=== PATIENT | female | born 1990 ===

== ENCOUNTER 2017-08-09 20:36 | Emergency (ER) | payer SELFPAY ==
[2017-08-09 20:43] VITALS: RESP 18
--- NOTE | 2017-08-09 22:04 | ED PDOC ---
HPI: Female Pain Time Seen by Provider: 08/09/17 20:48 Chief Complaint (Nursing): Female Genitourinary Chief Complaint (Provider): Abdominal Pain History Per: Patient History/Exam Limitations: no limitations Onset/Duration Of Symptoms: Days (x1) Current Symptoms Are (Timing): Still Present Quality Of Discomfort: Burning Associated Symptoms: Nausea. denies: Vomiting Additional Complaint(s): Winnie Garcia is a 27 year old female who presents to the ED complaining of vaginal bleeding for 1 day and abdominal pain for 1 week. Patient is and is EGA 7 weeks. Patient reports she is currently visiting from [facility]. She states she has lower abdominal pain for 1 week and today, pain became significantly worse. Pain is a burning sensation and has had nausea but no vomiting. PCP: none provided Past Medical History Reviewed: Historical Data, Nursing Documentation, Vital Signs Vital Signs: Last Vital Signs Temp 98.3 F 08/09/17 20:40 Pulse 72 08/09/17 20:40 Resp 18 08/09/17 20:40 BP 149/81 08/09/17 20:40 Pulse Ox 100 08/09/17 20:40 - Medical History PMH: Hypothyroidism - Surgical History Surgical History: Back Surgery (spinal surgery for scoliosis) - Family History Family History: States: Unknown Family Hx - Social History Current smoker - smoking cessation education provided: No Alcohol: None Drugs: Denies - Allergies Allergies/Adverse Reactions: Allergies Allergy/AdvReac Type Severity Reaction Status Date / Time No Known Allergies Allergy Verified 08/09/17 21:25 Review of Systems ROS Statement: Except As Marked, All Systems Reviewed And Found Negative Gastrointestinal: Positive for: Nausea, Abdominal Pain. Negative for: Vomiting Genitourinary Female: Positive for: Vaginal Bleeding Physical Exam - Reviewed Nursing Documentation Reviewed: Yes Vital Signs Reviewed: Yes - Physical Exam Appears: Positive for: Non-toxic, No Acute Distress Head Exam: Positive for: ATRAUMATIC, NORMOCEPHALIC Skin: Positive for: Normal Color, Warm, Dry Eye Exam: Positive for: Normal appearance Neck: Positive for: Normal, Painless ROM Cardiovascular/Chest: Positive for: Regular Rate, Rhythm. Negative for: Murmur Respiratory: Positive for: Normal Breath Sounds. Negative for: Wheezing, Respiratory Distress Gastrointestinal/Abdominal: Positive for: Tenderness (suprapubic) Back: Positive for: Normal Inspection. Negative for: L CVA Tenderness, R CVA Tenderness Extremity: Positive for: Normal ROM Neurologic/Psych: Positive for: Alert, Oriented. Negative for: Motor/Sensory Deficits - Laboratory Results Result Diagrams: 08/09/17 22:01 08/09/17 22:45 - ECG O2 Sat by Pulse Oximetry: 100 (RA) Pulse Ox Interpretation: Normal Medical Decision Making Medical Decision Making: Initial Impression: 27 year old female with abdominal pain Initial Plan: ABO/RH type Type and screen Beta HCG Urine ED urine dipstick CBC Tylenol 650mg PO US transvaginal Scribe Attestation: Documented by Aman Rangel acting as a scribe for Carlos Pastor MD. Provider Scribe Attestation: All medical record entries made by the Scribe were at my direction and personally dictated by me. I have reviewed the chart and agree that the record accurately reflects my personal performance of the history, physical exam, medical decision making, and the department course for this patient. I have also personally directed, reviewed, and agree with the discharge instructions and disposition. Time: 0143 TRANSVAGINAL US RESULTS FINDINGS: Gestation: No intrauterine is identified at this time. Uterus/cervix: The uterus measures 6.6 x 5.0 x 3.6 cm. Endometrial thickness measures approximately 9 mm and contains a complex nonspecific focus. No myometrial mass. Ovaries: RIGHT ovary measures 3.0 x 2.3 x 1.6 cm. LEFT ovary measures 2.1 x 3.1 x 2.1 cm it contains a 1.6 x 2.3 x 1.6 cm complex cyst. Free fluid: No free fluid. IMPRESSION: No intrauterine is identified at this time. Complex endometrium. Followup as clinically warranted. Thank you for allowing us to participate in the care of your patient. Dictated and Authenticated by: Jesus Licona MD 08/10/2017 1:43 AM Eastern Time ([place] & [place]) Time: 015 -- Labs reviewed show no clinically sig abnormalities; Based on BHCG level and U/S patient likely has much earlier stage of (2-3 weeks) vs threat miscarriage which was explained to her at length. Patient reports symptoms improved after Tylenol. Provider explained return precaution and need for pelvic rest. Patient intends to return to [place] within the next two weeks and instructed to return for heavy bleeding or worsening pain. Patient is stable for discharge with the diagnosis of threatened miscarriage and ovarian cysts. Patient to be referred to the [facility]. Scribe Attestation: Documented by Rain Shields, acting as a scribe for Dr. Carlos Pastor MD. Provider Scribe Attestation: All medical record entries made by the Scribe were at my direction and personally dictated by me. I have reviewed the chart and agree that the record accurately reflects my personal performance of the history, physical exam, medical decision making, and the department course for this patient. I have also personally directed, reviewed, and agree with the discharge instructions and disposition. Disposition - Clinical Impression Clinical Impression: Ovarian cyst, Threatened miscarriage - Disposition Referrals: [facility] [Outside] Disposition Time: 23:30 Condition: STABLE Instructions: Ovarian Cysts, Bleeding With Forms: [facility] (Djiboutian) Print Language: ARMENIAN
[2017-08-09 22:19] LABS: BASO # 0.1 K/uL (0.0-0.2); BASO % 0.5 % (0.0-2.0); EOS # 0.2 K/uL (0.0-0.7); EOS % 2.1 % (0.0-4.0); HEMOGLOBIN 12.8 g/dL (12.0-16.0); LYMPH # 3.5 K/uL (1.0-4.3); LYMPH % 30.2 % (20.0-40.0); MEAN CELL VOLUME 91.4 fl (81.0-99.0); MEAN CORPUSCULAR HEMOGLOBIN 30.8 pg (27.0-31.0); MEAN CORPUSCULAR HGB CONC 33.7 g/dL (33.0-37.0); MEAN PLATELET VOLUME 8.8 fl (7.2-11.7); MONO # 0.6 K/uL (0.0-0.8); MONO % 4.8 % (0.0-10.0); NEUT # 7.3 K/uL (1.8-7.0); NEUT % 62.4 % (50.0-75.0); RBC 4.16 Mil/uL (3.80-5.20); WHITE BLOOD COUNT 11.7 K/uL (4.8-10.8)
[2017-08-09 23:41] LABS: ALB/GLOB RATIO 0.9 (1.0-2.1); ALBUMIN 3.6 g/dL (3.5-5.0); ALT/SGPT 27 U/L (9-52); AST/SGOT 65 U/L (14-36); BLOOD UREA NITROGEN 12 mg/dl (7-17); CALCIUM 9.1 mg/dL (8.4-10.2); GFR AFRICAN-AMERICAN > 60; GFR NON-AFRICAN AMERICAN > 60
[2017-08-10 02:10] VITALS: BP 115/72; PULSE 77; TEMP 98.5
[2017-08-10 06:21] VITALS: O2SAT 100
--- NOTE | 2017-08-10 15:28 | US ---
HISTORY: preg vag bld ; patient last which appears reported 06/18/2017 in a patient that has irregular cycles reportedly. Based on LMP, gestation of 7 weeks 3 days is suggested. COMPARISON: None available. TECHNIQUE: Transvaginal pelvic ultrasound was performed with longitudinal and transverse images submitted for interpretation. FINDINGS: UTERUS: Measures 6.6 x 5.0 x 3.6 cm. Uterus appears retroverted, normal in size and appearance. No fibroid or other mass lesion seen. ENDOMETRIUM: Measures 8.5 mm in diameter. No definitive gestational sac identified within the endometrial cavity at this time. CERVIX: No cervical abnormality identified. Cervical length measures 3.3 cm RIGHT OVARY: Measures 3.0 x 2.3 x 1.6 cm. No solid mass. Normal flow. A few follicles are scattered. LEFT OVARY: Measures 2.1 x 3.1 x 2.1 cm. No solid mass. Normal flow. No definitive suspicious finding appreciated. A few tiny follicles are identified. FREE FLUID: No significant free fluid noted. OTHER FINDINGS: None. IMPRESSION: No IUP identified at this time. An early nonvisualized intrauterine gestation is possible but would be discrepant from the patient's LMP derived dates of 7 weeks 3 days. Consider potential failure of gestation as well. Ectopic is not identified but is not been excluded completely. Continued follow-up recommended by serial beta HCG analysis as well as transvaginal pelvic ultrasonography. Concordant preliminary report from [facility], 08/10/2017.
== END 2017-08-10 02:15 | disposition home or self-care (01) ==
LOC: H.ER 20:36
DX: O20.9 Hemorrhage in early pregnancy, unspecified (principal); O20.0 Threatened abortion; N83.209 Unspecified ovarian cyst, unspecified side; E03.9 Hypothyroidism, unspecified

== ENCOUNTER 2017-08-12 08:33 | Emergency (ER) | payer SELFPAY ==
[2017-08-12 08:48] VITALS: O2SAT 98
[2017-08-12 08:49] VITALS: BMI 21.6
[2017-08-12] MEDS ORDERED: Sodium Chloride 0.9% 1,000 ML IV STA (11:11)
[2017-08-12 11:46] LABS: BASO # 0.1 K/uL (0.0-0.2); BASO % 0.5 % (0.0-2.0); EOS # 0.1 K/uL (0.0-0.7); EOS % 1.1 % (0.0-4.0); HEMOGLOBIN 14.6 g/dL (12.0-16.0); LYMPH # 2.7 K/uL (1.0-4.3); LYMPH % 22.9 % (20.0-40.0); MEAN CORPUSCULAR HEMOGLOBIN 31.1 pg (27.0-31.0); MEAN CORPUSCULAR HGB CONC 34.2 g/dL (33.0-37.0); MEAN PLATELET VOLUME 8.9 fl (7.2-11.7); MONO # 0.4 K/uL (0.0-0.8); MONO % 3.7 % (0.0-10.0); NEUT # 8.4 K/uL (1.8-7.0); NEUT % 71.8 % (50.0-75.0); RBC 4.68 Mil/uL (3.80-5.20); WHITE BLOOD COUNT 11.7 K/uL (4.8-10.8)
--- NOTE | 2017-08-12 12:02 | ED PDOC ---
HPI: Abdomen Time Seen by Provider: 08/12/17 09:07 Chief Complaint (Nursing): Abdominal Pain Chief Complaint (Provider): pelvic pain cramping bleeding History Per: Patient, Aircraft Design Engineer (Sunshine Cuadra) History/Exam Limitations: no limitations Onset/Duration Of Symptoms: Days (4), Gradual Current Symptoms Are (Timing): Still Present Severity: Moderate Location Of Pain/Discomfort: Periumbilical Quality Of Discomfort: Cramping Associated Symptoms: denies: Fever, Vomiting, Diarrhea, Urinary Symptoms Exacerbating Factors: None Alleviating Factors: None Last Bowel Movement: Today Additional Complaint(s): 27yo female c/o pelvic cramping, bleeding and early . Seen here 3 days ago told early but quant approx 50 and US no IUP. Since then pain continues and bleeding worsened somewhat. Denies dizziness, syncope, fever or urinary symptoms LMP June 17 but irregulat PMD none Past Medical History Reviewed: Historical Data, Nursing Documentation, Vital Signs Vital Signs: Last Vital Signs Temp 98.0 F 08/12/17 15:00 Pulse 75 08/12/17 15:00 Resp 14 08/12/17 15:00 BP 122/68 08/12/17 15:00 Pulse Ox 98 08/12/17 15:02 - Medical History PMH: Hypothyroidism - Surgical History Surgical History: Back Surgery (spinal surgery for scoliosis) - Family History Family History: States: Unknown Family Hx - Living Arrangements Living Arrangements: With Family - Social History Current smoker - smoking cessation education provided: No - Home Medications Home Medications: Ambulatory Orders Medication Instructions Recorded Ibuprofen [Motrin Tab] 600 mg PO Q6 PRN #15 tab 08/12/17 - Allergies Allergies/Adverse Reactions: Allergies Allergy/AdvReac Type Severity Reaction Status Date / Time No Known Allergies Allergy Verified 08/09/17 21:25 Review of Systems ROS Statement: Except As Marked, All Systems Reviewed And Found Negative Constitutional: Negative for: Fever Respiratory: Negative for: Cough Gastrointestinal: Positive for: Abdominal Pain. Negative for: Vomiting, Diarrhea Genitourinary Female: Positive for: Vaginal Bleeding, Pelvic Pain. Negative for : Dysuria Musculoskeletal: Negative for: Neck Pain Skin: Negative for: Rash, Lesions, Jaundice Neurological: Negative for: Weakness, Numbness Physical Exam - Reviewed Nursing Documentation Reviewed: Yes Vital Signs Reviewed: Yes - Physical Exam Appears: Positive for: Well, Non-toxic, No Acute Distress Head Exam: Positive for: ATRAUMATIC, NORMAL INSPECTION, NORMOCEPHALIC Skin: Positive for: Normal Color, Warm, DRY Eye Exam: Positive for: EOMI, Normal appearance, PERRL ENT: Positive for: Normal ENT Inspection Neck: Positive for: Normal, Painless ROM Cardiovascular/Chest: Positive for: Regular Rate, Rhythm Respiratory: Positive for: CNT, Normal Breath Sounds Gastrointestinal/Abdominal: Positive for: Soft, Tenderness (pelvic tenderness b/ l) Back: Positive for: Normal Inspection Extremity: Positive for: Normal ROM Neurologic/Psych: Positive for: Alert, Oriented - Laboratory Results Result Diagrams: 08/12/17 11:34 08/12/17 11:34 - ECG O2 Sat by Pulse Oximetry: 98 Pulse Ox Interpretation: Normal Medical Decision Making Medical Decision Making: Labs and US ordered to gauge status of early . Hgb stable Quant decreasing now 14.75 Rh+ Accession No. : [id number] Patient Name / ID : DOMINICK PAGE / [id number] Exam Date : 08/12/2017 11:26:23 ( Approved ) Study Comment : Sex / Age : F / [id number] Creator : Caden Gorman MD Dictator : Caden Gorman MD Dish Cloth Inspector : Shoe Repairman : Caden Gorman MD Approver2 : Report Date : 08/12/2017 13:22:16 My Comment : HISTORY: pelvic pain cramping COMPARISON: None available. TECHNIQUE: Transvaginal pelvic ultrasound was performed with longitudinal and transverse images submitted for interpretation. FINDINGS: UTERUS: Measures 5.3 x 4.5 x 3.7 cm. Retroverted. Normal in size and appearance. No fibroid or other mass lesion seen. ENDOMETRIUM: Measures 6.0 mm in diameter. Questionable tiny gestational sac within the endometrial cavity measuring 0.5 x 0.4 x 0.2 cm. This may indicate an early developing intrauterine gestation although failure of gestation is possible as well as pseudo gestational sac with ectopic though no ectopic is appreciated at this time. CERVIX: No cervical abnormality identified. RIGHT OVARY: Measures 2.3 x 2.2 x 1.2 cm. No solid mass. Normal flow. LEFT OVARY: Measures 2.0 x 2.4 x 2.0 cm. No solid mass. Normal flow. 1.0 cm simple left paraovarian cyst identified. FREE FLUID: No significant free fluid noted. OTHER FINDINGS: None. IMPRESSION: Potential gestational sac under 1 cm grow mean sac diameter at the high endometrial cavity though this could simply reflect nonspecific fluid. No suspicious adnexal findings to suggest ectopic gestation although a 1.0 cm left parovarian cyst is identified, appearing simple. Consider potential early IUP but no pole yolk sac is yet visualize, failure of gestation or pseudo gestational sac with potential ectopic though ectopic is not clearly identified. Serial beta HCG analysis is advised as well as follow-up pelvic ultrasound in 1 week. -------- Results discussed in anguillan- likely spontaneous given US findings and HCG now dropping significantly States bleeding minimal now Indications for return to ER and followup discussed Patient was emotionally distraught on the news but declined crisis or pastoral support. Disposition - Clinical Impression Clinical Impression: Spontaneous - Patient ED Disposition Is Patient to be Admitted: No Counseled Patient/Family Regarding: Studies Performed, Diagnosis, Need For Followup, Rx Given - Disposition [facility]] Disposition: Routine/Home Disposition Time: 14:00 Condition: STABLE Additional Instructions: Take pain medicine as directed. Return to ER for any worse or new symptoms, using >3 pads/hour, dizziness, fever or pain. Recommend repeat ultrasound and bloodwork in one week. [place] el medicamento para el dolor segn las indicaciones. Regrese a la emmanuelle de emergencias por cualquier sntoma peor o nuevo, con ms de 3 compresas / hora, mareos, fiebre o dolor. Recomiende repetir ultrasonidos y anlisis de kylah en anselmo semana. Prescriptions: Ibuprofen [Motrin Tab] 600 mg PO Q6 PRN #15 tab PRN Reason: Pain, Moderate (4-7) Instructions: Miscarriage, Dealing With Miscarriage Forms: [facility] (Sinhala) Print Language: SUDANESE
[2017-08-12 13:06] LABS: ALB/GLOB RATIO 1.1 (1.0-2.1); ALBUMIN 4.2 g/dL (3.5-5.0); ALT/SGPT 22 U/L (9-52); AST/SGOT 29 U/L (14-36); BLOOD UREA NITROGEN 7 mg/dl (7-17); CALCIUM 9.7 mg/dL (8.4-10.2); GFR AFRICAN-AMERICAN > 60; GFR NON-AFRICAN AMERICAN > 60
--- NOTE | 2017-08-12 13:23 | US ---
HISTORY: pelvic pain cramping COMPARISON: None available. TECHNIQUE: Transvaginal pelvic ultrasound was performed with longitudinal and transverse images submitted for interpretation. FINDINGS: UTERUS: Measures 5.3 x 4.5 x 3.7 cm. Retroverted. Normal in size and appearance. No fibroid or other mass lesion seen. ENDOMETRIUM: Measures 6.0 mm in diameter. Questionable tiny gestational sac within the endometrial cavity measuring 0.5 x 0.4 x 0.2 cm. This may indicate an early developing intrauterine gestation although failure of gestation is possible as well as pseudo gestational sac with ectopic though no ectopic is appreciated at this time. CERVIX: No cervical abnormality identified. RIGHT OVARY: Measures 2.3 x 2.2 x 1.2 cm. No solid mass. Normal flow. LEFT OVARY: Measures 2.0 x 2.4 x 2.0 cm. No solid mass. Normal flow. 1.0 cm simple left paraovarian cyst identified. FREE FLUID: No significant free fluid noted. OTHER FINDINGS: None. IMPRESSION: Potential gestational sac under 1 cm grow mean sac diameter at the high endometrial cavity though this could simply reflect nonspecific fluid. No suspicious adnexal findings to suggest ectopic gestation although a 1.0 cm left parovarian cyst is identified, appearing simple. Consider potential early IUP but no pole yolk sac is yet visualize, failure of gestation or pseudo gestational sac with potential ectopic though ectopic is not clearly identified. Serial beta HCG analysis is advised as well as follow-up pelvic ultrasound in 1 week.
[2017-08-12 15:36] VITALS: BP 122/68; PULSE 75; RESP 14; TEMP 98
== END 2017-08-12 15:36 | disposition home or self-care (01) ==
LOC: H.ER 08:33
DX: O03.9 Complete or unspecified spontaneous abortion without complication (principal); E03.9 Hypothyroidism, unspecified
CPT/HCPCS: 76817; 80053; 81025; 84702; 85025; 86850; 86900; 99284; J7030